=== PATIENT | male | born 1990 | race American Indian/Alaskan Native ===

== ENCOUNTER 2017-09-16 02:41 | Emergency (ER) | payer SELFPAY ==
--- NOTE | 2017-09-16 07:57 | Emergency Department Report ---
ED Rash HPI - HPI Chief Complaint: Eye Problems Stated Complaint: BOTH EYES REDNESS WITH DISCHARGE Time Seen by Provider: 09/16/17 07:30 ED Review of Systems ROS: Stated complaint: BOTH EYES REDNESS WITH DISCHARGE Other details as noted in HPI ED Past Medical Hx - Past Medical History Previous Medical History?: No - Surgical History Past Surgical History?: No - Social History Smoking Status: Current Every Day Smoker Substance Use Type: None Rash Exam - Exam General: Vital signs noted. No distress. Alert and acting appropriately. ED Course Vital Signs 09/16/17 02:45 Temperature 98.0 F Respiratory 16 Rate Blood Pressure 136/76 O2 Sat by Pulse 100 Oximetry Critical care attestation.: If time is entered above; I have spent that time in minutes in the direct care of this critically ill patient, excluding procedure time. ED Disposition Condition: Stable Referrals: PRIMARY CARE [Primary Care Provider] - 3-5 Days
--- NOTE | 2017-09-16 07:59 | Emergency Department Report ---
[facility] Chief Complaint: Eye Problems Stated Complaint: BOTH EYES REDNESS WITH DISCHARGE Time Seen by Provider: 09/16/17 07:30 Duration: 5 Days Side: Bilateral Severity: moderate Symptoms: Yes Eye Itching (both eyes), Yes Eye Redness (eyes), Yes Purulent Drainage (both eyes), No Eye Pain, No Mucous Drainage, No Blurred Vision, No Preceding URI, No H/O Allergic Rhinitis, No Contact Lens Use, No Trauma, No Fever Other History: Physical is 37-year-old male who reports that he is pink eyes and both eyes that he thinks he got from someone who was exposed to it. He said his eyes are red and drainage with crusting. He reports it started in his right eye and now it is in his left eye. No [id number] medication use and use. No known injury site. Denies any eye pain. Reports itching. Denies any foreign body sensation and tetanus vaccines up-to-date. Denies any cough, fever chills, nasal congestion or runny nose. He is here with his significant other who has the same symptoms ED Review of Systems ROS: Stated complaint: BOTH EYES REDNESS WITH DISCHARGE Other details as noted in HPI Constitutional: denies: chills, fever Eyes: eye discharge, other (both eyes redness). denies: eye pain, vision change ENT: denies: ear pain, throat pain, dental pain, hearing loss, congestion Respiratory: denies: cough, shortness of breath, SOB with exertion, wheezing Cardiovascular: denies: chest pain, palpitations, edema, syncope Gastrointestinal: denies: abdominal pain, nausea, diarrhea Skin: denies: rash, lesions Neurological: denies: headache, paresthesias, abnormal gait, vertigo ED Past Medical Hx - Past Medical History Previous Medical History?: No - Surgical History Past Surgical History?: No - Family History Family history: no significant - Social History Smoking Status: Current Every Day Smoker Substance Use Type: None - Medications Home Medications: Home Medications Medication Instructions Recorded Confirmed Last Taken Type Gentamicin 0.3% Ophth Soln 2 drops OU Q8H 7 Days #1 bottle 09/16/17 Unknown Rx [facility] Exam - Exam General: Vital signs noted. No distress. Alert and acting appropriately. This is a 27-year-old male here reports that he has pinkeye. Well-nourished well-developed in no acute distress Eye Exam: Both Injection, Both EOMI, Both Purulent Discharge, Neither Chemosis, Neither Abnormal Pupil, Neither Eye Foreign Body, Neither Lid Foreign Body, Neither Mucous Discharge, Neither Fluorescein Uptake, Neither Fluorescein Uptake (slit lamp), Neither Cell/Flare (slit lamp), Neither Corneal Edema, Neither Photophobia HEENT: No Nasal Congestion, No Pharyngeal Erythema Remainder of HEENT: Normal Lungs: Yes Clear Lung Sounds, Yes Good Air Exchange, No Wheezes, No Stridor, No Cough, No Nasal Flaring, No Retractions, No Use of Accessory Muscles ED Course Vital Signs 09/16/17 02:45 Temperature 98.0 F Respiratory 16 Rate Blood Pressure 136/76 O2 Sat by Pulse 100 Oximetry - Reevaluation(s) Reevaluation #1: 09/16/17 08:03 Patient is stable and in no acute distress. Critical care attestation.: If time is entered above; I have spent that time in minutes in the direct care of this critically ill patient, excluding procedure time. ED Disposition Clinical Impression: Conjunctivitis, both eyes Qualifiers: Conjunctivitis type: acute Acute conjunctivitis type: bacterial Qualified Code( s): H10.33 - Unspecified acute conjunctivitis, bilateral Disposition: DC-01 TO HOME OR SELFCARE Is pt being admited?: No Does the pt Need Aspirin: No Condition: Stable Instructions: Conjunctivitis (ED) Additional Instructions: Instill eyedrops as instructed Keep affected areas clean and dry [employer] in 2-3 days Prescriptions: Gentamicin 0.3% Ophth Soln 2 drops OU Q8H 7 Days #1 bottle Referrals: MARGE SOSA MD [Staff Physician] - 2-3 Days PRIMARY CARE, [Primary Care Provider] - 2-3 Days Forms: Work/School Release Form(ED)
[2017-09-16 08:29] VITALS: BP 136/70
== END 2017-09-16 08:28 | disposition home or self-care (01) ==
LOC: ED 02:41
DX: H10.33 Unspecified acute conjunctivitis, bilateral (principal); F17.200 Nicotine dependence, unspecified, uncomplicated
CPT/HCPCS: 99282